=== PATIENT | female | born 1975 | race Caucasian/White ===

== ENCOUNTER 2017-08-11 09:48 | Day surgery (SDC) | payer BC ==
[~2017-08-11] VITALS: Ht 172.7 cm; Wt 90.9 kg
[2017-08-11] VITALS (16 sets, daily range): BP systolic 85–109; BP diastolic 53–72; PULSE 76–88; TEMP 97.8–98.2
[~2017-08-11 09:48] MED LIST: AMITRIPTYLINE H10 M1 PO; ASPIRIN 81M81 MG/TA2 PO; B-121000 MCG PO; COREG12.5 MG PO; COUMADIN 3MG3 MG/TAB PO; DIGITEK0.125 MG PO; FERROUS SULFATE65 MG PO; FLEXERIL 1010 MG/TAB PO; KLOR-CON 1010 MEQ PO; LASIX 40MG TABL40 MG PO; MAGNESIUM200 MG PO; MELAT3MGTAB PO; MIRAPEX0.5 MG PO; MULTI VITAMINS1 TAB PO; NEURONTIN300 MG/CAP PO; PAXIL 10MG10 MG PO; PLAQUENIL 200M200 MG PO; SYNTHROID0.2 MG/TAB PO
[2017-08-11] MEDS ORDERED: ALDACTONE50 MG PO (10:20)
[2017-08-11 10:21] LABS: HEMATOCRIT 37.4 % (37.0-47.0); MEAN CELL VOLUME 94 fl (80.0-100.0); MEAN CORPUSCULAR HEMOGLOBIN 30 pg (27.0-31.0); MEAN CORPUSCULAR HGB CONC 32 g/dl (33.0-37.0); MEAN PLATELET VOLUME 10.5 fl (7.4-10.4); PLATELET COUNT 270 K/mm3 (130-400); WHITE BLOOD COUNT 9.5 K/mm3 (4.8-10.8)
[2017-08-11] MEDS ORDERED: CYMBALTA 60MG60 MG PO (10:23)
[2017-08-11] MEDS ORDERED: ZOCOR 20MG20 MG PO (10:23)
[2017-08-11] MEDS ORDERED: LYRICA 75MG CAP75 MG PO (10:24)
[2017-08-11] MEDS ORDERED: LASIX 80MG TABL80 MG PO (10:26)
[2017-08-11] MEDS ORDERED: LITHIUM 30300 MG/CAP PO (10:26)
[2017-08-11 10:28] LABS: INR 2.2 (0.8-3.0); PROTHROMBIN TIME 26.2 SECONDS (9.7-12.8)
[2017-08-11 10:34] LABS: CALCIUM 9.3 mg/dL (8.4-10.2); CREATININE, serum 0.91 mg/dL (0.52-1.25); POTASSIUM 3.6 mmol/L (3.4-5.0)
[2017-08-11] MEDS ORDERED: COUMADIN4 MG PO (15:03)
[2017-08-11] MEDS ORDERED: MIRAPEX0.5 MG PO (15:04)
[2017-08-12 00:29] VITALS: BP 96/59; PULSE 82; TEMP 98
[2017-08-12 00:49] VITALS: BP 96/59; PULSE 82; TEMP 98
[2017-08-12 04:24] VITALS: BP 95/57; PULSE 85; TEMP 97.8
[2017-08-12 04:33] VITALS: BP 95/57; PULSE 85; TEMP 97.8
[2017-08-12 11:43] VITALS: BP 119/57; PULSE 91; TEMP 98.2
== END 2017-08-12 13:46 | disposition home or self-care (01) ==
LOC: COL.CAR 09:48 → MEDICAL 14:17 → COL.CAR 08-12 13:46
PROVIDERS: Internal Medicine Interventional Cardiology
DX: R07.9 Chest pain, unspecified (principal); R94.39 Abnormal result of other cardiovascular function study; I07.1 Rheumatic tricuspid insufficiency; I27.20 Pulmonary hypertension, unspecified; I20.9 Angina pectoris, unspecified; Z79.01 Long term (current) use of anticoagulants; Z95.2 Presence of prosthetic heart valve; Z87.891 Personal history of nicotine dependence; Z82.3 Family history of stroke; Z82.49 Family history of ischemic heart disease and other diseases of the circulatory system
CPT/HCPCS: OP; J2250; J3010; Q9967